=== PATIENT | female | born 1995 | race Caucasian/White ===

== ENCOUNTER 2018-12-21 19:28 | Inpatient (IN) | payer OTHER, MEDICAID ==
[2018-12-21] MEDS: ONDANSETRON 4 MG INJ IV (22:30)
[2018-12-21] MEDS ORDERED: DEXAMETHASONE 10 MG/ML 1 ML INJ IM (22:30)
[2018-12-21] MEDS: morphine 4 MG/ML VIAL IV (22:30)
[2018-12-21] MEDS: SOD CHLORIDE 0.9% 1,000 ML IV (22:31)
[2018-12-21 22:38] LABS: HEMATOCRIT 31.6 % (37.0-47.0); HEMOGLOBIN 9.2 g/dl (12.0-16.0); MEAN CORPUSCULAR HEMOGLOBIN 19.2 pg (29.0-33.0); MEAN CORPUSCULAR HGB CONC 29.1 g/dl (32.0-37.0); MEAN CORPUSCULAR VOLUME 66.1 fl (82.0-101.0); PLATELET COUNT 683 10^3/UL (140-415); RED BLOOD COUNT 4.78 10^6/ul (4.20-5.40); RED CELL DISTRIBUTION WIDTH 17.5 % (11.5-14.5)
[2018-12-21 22:41] LABS: ADD UMIC YES; UR ASCORBIC ACID NEGATIVE (NEGATIVE); UR BACTERIA FEW /HPF (NONE SEEN); UR BILIRUBIN (Dip) NEGATIVE (NEGATIVE); UR BLOOD (Dip) 1+ mg/dL (NEGATIVE); UR CLARITY CLOUDY (CLEAR); UR COLOR YELLOW (YELLOW); UR GLUCOSE (Dip) NEGATIVE (NEGATIVE); UR KETONES (Dip) 1+ mg/dL (NEGATIVE); UR LEUKOCYTE ESTERASE (Dip) 1+ Leu/ul (NEGATIVE); UR MUCUS FEW /HPF (NONE SEEN); UR NITRITE (Dip) NEGATIVE (NEGATIVE); UR RBC 13 /HPF (0-5); UR SPECIFIC GRAVITY (Dip) 1.016 (1.003-1.030); UR SQUAMOUS EPITHELIAL CELL FEW /HPF (FEW); UR TOTAL PROTEIN (Dip) NEGATIVE (NEGATIVE); UR UROBILINOGEN (Dip) NEGATIVE (NEGATIVE); UR WBC 11 /HPF (0-5)
[2018-12-21 22:42] LABS: ADD MAN DIFF? YES
[2018-12-21 22:43] LABS: PATH REVIEW? YES
[2018-12-21] MEDS: DEXAMETHASONE 10 MG/ML 1 ML INJ IV (22:47)
[2018-12-21 22:57] LABS: ALANINE AMINOTRANSFERASE 17 IU/L (13-69); ALBUMIN 3.9 g/dl (3.3-4.9); ALBUMIN/GLOBULIN RATIO 1.05; ALKALINE PHOSPHATASE 85 IU/L (42-121); AMYLASE 63 U/L (11-123); ANION GAP 10 (5-13); ASPARTATE AMINO TRANSFERASE 12 IU/L (15-46); BILIRUBIN,INDIRECT 0.1 mg/dl (0-1.1); BILIRUBIN,TOTAL 0.1 mg/dl (0.2-1.3); BLOOD UREA NITROGEN 4 mg/dl (7-20); CARBON DIOXIDE 25 mmol/L (21-31); CHLORIDE 106 mmol/L (97-110); CREATININE 0.65 mg/dl (0.44-1.00); Estimated GFR > 60 mL/min (>60); GLUCOSE 92 mg/dl (70-220); LIPASE 44 U/L (23-300); SODIUM 141 mmol/L (135-144); TOTAL PROTEIN 7.6 g/dl (6.1-8.1)
[2018-12-21 23:01] LABS: AMPHETAMINE/METHAMPHETAMINE Negative (NEGATIVE); BARBITURATES Negative (NEGATIVE); BENZODIAZEPINES Negative (NEGATIVE); CANNABINOIDS Negative (NEGATIVE); COCAINE Negative (NEGATIVE)
[2018-12-21 23:02] LABS: OPIATES Positive (NEGATIVE)
[2018-12-21 23:28] LABS: ACANTHOCYTES 1+ (0-0); ANISOCYTOSIS 1+ (0-0); BAND NEUTROPHILS #M 2.7 10^3/ul (0.0-0.6); BAND NEUTROPHILS % (M) 11 % (0-4); BASOPHIL #M 0.2 10^3/ul (0.0-0.0); BASOPHILS % (M) 1 % (0-2); BURR CELLS 1+ (0-0); EOSINOPHILS % (M) 5 % (0-7); GIANT THROMBO% (M) 2 % (0-0); LYMPHOCYTES % (M) 24 % (15-51); MICROCYTOSIS 1+ (0-0); MONOCYTE #M 2.5 10^3/ul (0.3-0.9); MONOCYTES % (M) 10 % (0-11); OVALOCYTES 2+ (0-0); PLATELET ESTIMATE INCREASED; POIKILOCYTOSIS 2+ (0-0); SEG NEUT #M 12.9 10^3/ul (1.6-7.5); SEGMENTED NEUTROPHILS (M) % 49 % (39-77); SMUDGE%M 36 % (0-0)
[2018-12-21 23:41] LABS: ERYTHROCYTE SEDIMENTATION RATE 35 mm/Hr (0-20)
[2018-12-22] MEDS: SOD CHLORIDE 0.9% 1,000 ML IV (00:25)
[2018-12-22] MEDS: PIPER-TAZO 3.375 GM IV (PMX) 100 ML IVPB ×3 (01:45→17:34)
[2018-12-22] MEDS: morphine 4 MG/ML VIAL IV ×5 (03:39→20:56)
[2018-12-22] MEDS ORDERED: ACETAMINOPHEN 325 MG TAB PO ×2 (04:30→07:00)
[2018-12-22] MEDS ORDERED: ONDANSETRON 4 MG INJ IV ×2 (04:30→07:00)
[2018-12-22 04:55] LABS: LACTIC ACID 0.8 mmol/L (0.5-2.0)
[2018-12-22] MEDS: DEXTROSE 5%-0.45% NACL 1,000 ML IV ×2 (08:09→16:32)
[2018-12-22] MEDS: FAMOTIDINE 20 MG TAB PO ×2 (08:09→20:15)
[2018-12-22 08:22] LABS: ABNORMAL IP MESSAGE 1; HEMATOCRIT 33.3 % (37.0-47.0); HEMOGLOBIN 9.6 g/dl (12.0-16.0); MEAN CORPUSCULAR HEMOGLOBIN 19.1 pg (29.0-33.0); MEAN CORPUSCULAR HGB CONC 28.8 g/dl (32.0-37.0); MEAN CORPUSCULAR VOLUME 66.2 fl (82.0-101.0); MEAN PLATELET VOLUME 9.7 fl (7.4-10.4); PLATELET COUNT 725 10^3/UL (140-415); RED BLOOD COUNT 5.03 10^6/ul (4.20-5.40); RED CELL DISTRIBUTION WIDTH 17.5 % (11.5-14.5)
[2018-12-22 08:22] LABS: WHITE BLOOD COUNT 27.3 10^3/ul (4.8-10.8)
[2018-12-22 08:32] LABS: ADD MAN DIFF? YES; POSITIVE DIFF @See below
[2018-12-22 08:46] LABS: ANION GAP 11 (5-13); BLOOD UREA NITROGEN 2 mg/dl (7-20); C-REACTIVE PROTEIN 3.8 mg/dl (0.0-0.9); CALCIUM 9.2 mg/dl (8.4-10.2); CARBON DIOXIDE 23 mmol/L (21-31); CHLORIDE 107 mmol/L (97-110); CREATININE 0.53 mg/dl (0.44-1.00); Estimated GFR > 60 mL/min (>60); GLUCOSE 149 mg/dl (70-220); MAGNESIUM 2.1 mg/dl (1.7-2.5); PHOSPHORUS 2.8 mg/dl (2.5-4.9); POTASSIUM 4.3 mmol/L (3.5-5.1); SODIUM 141 mmol/L (135-144)
[2018-12-22 09:23] LABS: ANISOCYTOSIS 3+ (0-0); BAND NEUTROPHILS #M 7.6 10^3/ul (0.0-0.6); BAND NEUTROPHILS % (M) 28 % (0-4); GIANT THROMBO% (M) 1 % (0-0); HYPOCHROMASIA 2+ (0-0); LYMPHOCYTES #M 2.1 10^3/ul (0.8-2.9); LYMPHOCYTES % (M) 8 % (15-51); MICROCYTOSIS 3+ (0-0); PLATELET ESTIMATE INCREASED; POIKILOCYTOSIS 3+ (0-0); POLYCHROMASIA 3+ (0-0); SEG NEUT #M 19.5 10^3/ul (1.6-7.5); SEGMENTED NEUTROPHILS (M) % 64 % (39-77)
[2018-12-22 09:55] LABS: ERYTHROCYTE SEDIMENTATION RATE 36 mm/Hr (0-20)
[2018-12-22] MEDS: MESALAMINE (EC) 400 MG CAP PO (20:15)
[2018-12-22 20:51] LABS: OCCULT BLOOD STOOL POSITIVE (NEGATIVE)
[2018-12-23] MEDS: PIPER-TAZO 3.375 GM IV (PMX) 100 ML IVPB ×5 (00:09→23:40)
[2018-12-23] MEDS: morphine 4 MG/ML VIAL IV ×5 (01:04→22:01)
[2018-12-23] MEDS: DEXTROSE 5%-0.45% NACL 1,000 ML IV ×2 (05:35→07:00)
[2018-12-23 06:28] LABS: ADD MAN DIFF? NO
[2018-12-23 06:41] LABS: WHITE BLOOD COUNT 26.3 10^3/ul (4.8-10.8)
[2018-12-23 06:41] LABS: ABNORMAL IP MESSAGE 1; BASOPHIL # 0.1 10^3/ul (0.0-0.1); BASOPHILS % 0.4 % (0.0-2.0); EOSINOPHILS # 0.1 10^3/ul (0.0-0.5); EOSINOPHILS % 0.2 % (0.0-7.0); HEMATOCRIT 27.6 % (37.0-47.0); HEMOGLOBIN 8.1 g/dl (12.0-16.0); LYMPHOCYTES # 3.3 10^3/ul (0.8-2.9); LYMPHOCYTES % 12.6 % (15.0-51.0); MEAN CORPUSCULAR HEMOGLOBIN 19.3 pg (29.0-33.0); MEAN CORPUSCULAR HGB CONC 29.3 g/dl (32.0-37.0); MEAN CORPUSCULAR VOLUME 65.9 fl (82.0-101.0); MEAN PLATELET VOLUME 10.2 fl (7.4-10.4); MONOCYTE # 1.7 10^3/ul (0.3-0.9); MONOCYTES % 6.3 % (0.0-11.0); NEUTROPHIL # 20.9 10^3/ul (1.6-7.5); NEUTROPHILS % 79.7 % (39.0-77.0); NUCLEATED RED BLOOD CELLS% 0.1 /100WBC (0.0-0.0); RED BLOOD COUNT 4.19 10^6/ul (4.20-5.40); RED CELL DISTRIBUTION WIDTH 17.7 % (11.5-14.5)
[2018-12-23 06:49] LABS: PLATELET COUNT 642 10^3/UL (140-415); POSITIVE DIFF @See below
[2018-12-23 07:06] LABS: ALANINE AMINOTRANSFERASE 15 IU/L (13-69); ALBUMIN 3.2 g/dl (3.3-4.9); ALBUMIN/GLOBULIN RATIO 0.96; ALKALINE PHOSPHATASE 68 IU/L (42-121); ANION GAP 11 (5-13); ASPARTATE AMINO TRANSFERASE 9 IU/L (15-46); BLOOD UREA NITROGEN 3 mg/dl (7-20); CALCIUM 8.6 mg/dl (8.4-10.2); CARBON DIOXIDE 26 mmol/L (21-31); CHLORIDE 105 mmol/L (97-110); CREATININE 0.64 mg/dl (0.44-1.00); Estimated GFR > 60 mL/min (>60); GLUCOSE 104 mg/dl (70-220); POTASSIUM 3.5 mmol/L (3.5-5.1); SODIUM 142 mmol/L (135-144); TOTAL PROTEIN 6.5 g/dl (6.1-8.1)
[2018-12-23 07:33] LABS: PHOSPHORUS 3.3 mg/dl (2.5-4.9)
[2018-12-23 07:33] LABS: MAGNESIUM 1.8 mg/dl (1.7-2.5)
[2018-12-23] MEDS: FAMOTIDINE 20 MG TAB PO ×2 (09:42→20:36)
[2018-12-23] MEDS: MESALAMINE (EC) 400 MG CAP PO ×3 (09:43→20:36)
[2018-12-23] MEDS: POTASSIUM CHLORIDE (SR) 20 MEQ TAB PO (12:10)
[2018-12-23] MEDS: D5W-0.45 NACL + KCL 20 MEQ 1,000 ML IV ×3 (12:10→23:00)
[2018-12-23] MEDS: morphine 2 MG INJ IV (13:48)
[2018-12-24] MEDS: morphine 4 MG/ML VIAL IV ×5 (02:08→21:46)
[2018-12-24] MEDS: PIPER-TAZO 3.375 GM IV (PMX) 100 ML IVPB ×3 (05:31→18:30)
[2018-12-24 06:04] LABS: ABNORMAL IP MESSAGE 1; HEMATOCRIT 28.2 % (37.0-47.0); HEMOGLOBIN 8.4 g/dl (12.0-16.0); MEAN CORPUSCULAR HEMOGLOBIN 19.6 pg (29.0-33.0); MEAN CORPUSCULAR HGB CONC 29.8 g/dl (32.0-37.0); MEAN CORPUSCULAR VOLUME 65.7 fl (82.0-101.0); MEAN PLATELET VOLUME 9.7 fl (7.4-10.4); NUCLEATED RED BLOOD CELLS% 0.1 /100WBC (0.0-0.0); PLATELET COUNT 615 10^3/UL (140-415); RED BLOOD COUNT 4.29 10^6/ul (4.20-5.40); RED CELL DISTRIBUTION WIDTH 17.8 % (11.5-14.5)
[2018-12-24 06:04] LABS: WHITE BLOOD COUNT 25.3 10^3/ul (4.8-10.8)
[2018-12-24 06:09] LABS: ADD MAN DIFF? YES; POSITIVE DIFF @See below
[2018-12-24 06:32] LABS: MAGNESIUM 1.8 mg/dl (1.7-2.5)
[2018-12-24 06:32] LABS: PHOSPHORUS 3.2 mg/dl (2.5-4.9)
[2018-12-24 06:34] LABS: ALANINE AMINOTRANSFERASE 9 IU/L (13-69); ALBUMIN 3.2 g/dl (3.3-4.9); ALBUMIN/GLOBULIN RATIO 0.96; ALKALINE PHOSPHATASE 62 IU/L (42-121); ANION GAP 13 (5-13); ASPARTATE AMINO TRANSFERASE 12 IU/L (15-46); BILIRUBIN,INDIRECT 0.1 mg/dl (0-1.1); BILIRUBIN,TOTAL 0.1 mg/dl (0.2-1.3); BLOOD UREA NITROGEN 4 mg/dl (7-20); CALCIUM 8.4 mg/dl (8.4-10.2); CARBON DIOXIDE 25 mmol/L (21-31); CHLORIDE 100 mmol/L (97-110); CREATININE 0.73 mg/dl (0.44-1.00); Estimated GFR > 60 mL/min (>60); GLUCOSE 86 mg/dl (70-220); POTASSIUM 3.8 mmol/L (3.5-5.1); SODIUM 138 mmol/L (135-144); TOTAL PROTEIN 6.5 g/dl (6.1-8.1)
[2018-12-24 08:22] LABS: ANISOCYTOSIS 3+ (0-0); BAND NEUTROPHILS #M 2.2 10^3/ul (0.0-0.6); BAND NEUTROPHILS % (M) 9 % (0-4); ELLIPTO 1+ (0-0); EOSINOPHILS % (M) 5 % (0-7); GIANT THROMBO% (M) 1 % (0-0); HYPOCHROMASIA 1+ (0-0); LYMPHOCYTES #M 4.3 10^3/ul (0.8-2.9); LYMPHOCYTES % (M) 17 % (15-51); MICROCYTOSIS 3+ (0-0); MONOCYTE #M 0.7 10^3/ul (0.3-0.9); MONOCYTES % (M) 3 % (0-11); OVALOCYTES 1+ (0-0); PLATELET ESTIMATE INCREASED; POIKILOCYTOSIS 3+ (0-0); POLYCHROMASIA 3+ (0-0); SEG NEUT #M 17.3 10^3/ul (1.6-7.5); SEGMENTED NEUTROPHILS (M) % 66 % (39-77); SMUDGE%M 2 % (0-0); TARGET CELLS 2+ (0-0)
[2018-12-24] MEDS: FAMOTIDINE 20 MG TAB PO ×2 (08:49→22:10)
[2018-12-24] MEDS: MESALAMINE (EC) 400 MG CAP PO ×3 (08:49→22:10)
[2018-12-24] MEDS: D5W-0.45 NACL + KCL 20 MEQ 1,000 ML IV ×2 (08:56→18:30)
[2018-12-24] MEDS: METHYLPREDNISOLONE 125 MG INJ IV ×2 (13:59→22:10)
[2018-12-24] MEDS: IBUPROFEN 600 MG TAB PO (14:49)
[2018-12-25] MEDS: PIPER-TAZO 3.375 GM IV (PMX) 100 ML IVPB ×3 (00:18→11:02)
[2018-12-25] MEDS: ZOLPIDEM 5 MG TAB PO (01:03)
[2018-12-25] MEDS: morphine 4 MG/ML VIAL IV ×3 (01:57→13:18)
[2018-12-25] MEDS: D5W-0.45 NACL + KCL 20 MEQ 1,000 ML IV ×2 (03:00→11:02)
[2018-12-25 05:44] LABS: ADD MAN DIFF? NO
[2018-12-25 05:48] LABS: ABNORMAL IP MESSAGE 1; BASOPHIL # 0.1 10^3/ul (0.0-0.1); BASOPHILS % 0.2 % (0.0-2.0); HEMATOCRIT 31.1 % (37.0-47.0); HEMOGLOBIN 9.3 g/dl (12.0-16.0); LYMPHOCYTES # 1.8 10^3/ul (0.8-2.9); MEAN CORPUSCULAR HEMOGLOBIN 19.5 pg (29.0-33.0); MEAN CORPUSCULAR HGB CONC 29.9 g/dl (32.0-37.0); MEAN CORPUSCULAR VOLUME 65.2 fl (82.0-101.0); MEAN PLATELET VOLUME 9.9 fl (7.4-10.4); MONOCYTE # 0.4 10^3/ul (0.3-0.9); MONOCYTES % 1.6 % (0.0-11.0); NEUTROPHIL # 22.9 10^3/ul (1.6-7.5); NEUTROPHILS % 90.2 % (39.0-77.0); PLATELET COUNT 722 10^3/UL (140-415); RED BLOOD COUNT 4.77 10^6/ul (4.20-5.40); RED CELL DISTRIBUTION WIDTH 17.5 % (11.5-14.5)
[2018-12-25 05:48] LABS: WHITE BLOOD COUNT 25.4 10^3/ul (4.8-10.8)
[2018-12-25 06:12] LABS: POSITIVE DIFF @See below
[2018-12-25] MEDS: METHYLPREDNISOLONE 125 MG INJ IV ×2 (06:49→13:39)
[2018-12-25] MEDS: MESALAMINE (EC) 400 MG CAP PO ×2 (08:06→13:39)
[2018-12-25] MEDS: FAMOTIDINE 20 MG TAB PO (08:06)
== END 2018-12-25 14:57 | disposition home or self-care (01) | DRG 386 ==
LOC: FTE 19:28 → PP2 23:49
PROVIDERS: Internal Medicine
DX: K50.911 Crohn's disease, unspecified, with rectal bleeding (principal); D62 Acute posthemorrhagic anemia; N39.0 Urinary tract infection, site not specified; D50.0 Iron deficiency anemia secondary to blood loss (chronic); Z90.49 Acquired absence of other specified parts of digestive tract; E66.9 Obesity, unspecified; Z68.37 Body mass index [BMI] 37.0-37.9, adult; D47.3 Essential (hemorrhagic) thrombocythemia; D72.829 Elevated white blood cell count, unspecified
CPT/HCPCS: 36415; 74018; 80048; 80053; 80307; 81001; 82150; 82270; 83605; 83690; 83735; 84100; 84703; 85025; 85651; 86140; 86674; 87040; 87045; 87075; 87086; 96361; 96365; 96375; 96376; 99285-25

== ENCOUNTER 2019-02-21 15:26 | Emergency (ER) | payer OTHER ==
[2019-02-21] MEDS: morphine 2 MG INJ IV ×2 (17:26→20:03)
[2019-02-21] MEDS: SOD CHLORIDE 0.9% 1,000 ML IV (17:26)
[2019-02-21 17:35] LABS: WHITE BLOOD COUNT 19.4 10^3/ul (4.8-10.8)
[2019-02-21 17:35] LABS: HEMATOCRIT 32.6 % (37.0-47.0); HEMOGLOBIN 9.6 g/dl (12.0-16.0); MEAN CORPUSCULAR HEMOGLOBIN 19.1 pg (29.0-33.0); MEAN CORPUSCULAR HGB CONC 29.4 g/dl (32.0-37.0); MEAN CORPUSCULAR VOLUME 64.9 fl (82.0-101.0); MEAN PLATELET VOLUME 9.8 fl (7.4-10.4); PLATELET COUNT 732 10^3/UL (140-415); RED BLOOD COUNT 5.02 10^6/ul (4.20-5.40); RED CELL DISTRIBUTION WIDTH 17.6 % (11.5-14.5)
[2019-02-21 17:37] LABS: ADD MAN DIFF? YES
[2019-02-21 17:39] LABS: ADD UMIC YES; UR ASCORBIC ACID NEGATIVE (NEGATIVE); UR BACTERIA FEW /HPF (NONE SEEN); UR BILIRUBIN (Dip) NEGATIVE (NEGATIVE); UR BLOOD (Dip) 1+ mg/dL (NEGATIVE); UR CLARITY CLEAR (CLEAR); UR COLOR STRAW (YELLOW); UR GLUCOSE (Dip) NEGATIVE (NEGATIVE); UR KETONES (Dip) NEGATIVE (NEGATIVE); UR LEUKOCYTE ESTERASE (Dip) TRACE Leu/ul (NEGATIVE); UR NITRITE (Dip) NEGATIVE (NEGATIVE); UR RBC 0 /HPF (0-5); UR SPECIFIC GRAVITY (Dip) 1.009 (1.003-1.030); UR SQUAMOUS EPITHELIAL CELL FEW /HPF (FEW); UR TOTAL PROTEIN (Dip) NEGATIVE (NEGATIVE); UR UROBILINOGEN (Dip) NEGATIVE (NEGATIVE); UR WBC 1 /HPF (0-5)
[2019-02-21 18:05] LABS: C-REACTIVE PROTEIN 0.9 mg/dl (0.0-0.9)
[2019-02-21 18:15] LABS: ANISOCYTOSIS 2+ (0-0); BAND NEUTROPHILS #M 0.3 10^3/ul (0.0-0.6); BAND NEUTROPHILS % (M) 2 % (0-4); BASOPHIL #M 0.1 10^3/ul (0.0-0.0); BASOPHILS % (M) 1 % (0-2); EOSINOPHILS % (M) 8 % (0-7); GIANT THROMBO% (M) 2 % (0-0); HYPOCHROMASIA 2+ (0-0); LYMPHOCYTES #M 4.2 10^3/ul (0.8-2.9); LYMPHOCYTES % (M) 22 % (15-51); MICROCYTOSIS 2+ (0-0); MONOCYTE #M 0.9 10^3/ul (0.3-0.9); MONOCYTES % (M) 5 % (0-11); OVALOCYTES 2+ (0-0); PLATELET ESTIMATE INCREASED; POIKILOCYTOSIS 2+ (0-0); SEG NEUT #M 12.1 10^3/ul (1.6-7.5); SEGMENTED NEUTROPHILS (M) % 62 % (39-77); SMUDGE%M 7 % (0-0)
[2019-02-21] MEDS ORDERED: DEXAMETHASONE 10 MG/ML 1 ML INJ IM (18:30)
[2019-02-21 18:41] LABS: ERYTHROCYTE SEDIMENTATION RATE 18 mm/Hr (0-20)
[2019-02-21 18:46] LABS: ALANINE AMINOTRANSFERASE 7 IU/L (13-69); ALBUMIN 4.3 g/dl (3.3-4.9); ALBUMIN/GLOBULIN RATIO 1.04; ALKALINE PHOSPHATASE 93 IU/L (42-121); ANION GAP 10 (5-13); ASPARTATE AMINO TRANSFERASE 18 IU/L (15-46); BILIRUBIN,INDIRECT 0.4 mg/dl (0-1.1); BILIRUBIN,TOTAL 0.4 mg/dl (0.2-1.3); BLOOD UREA NITROGEN 7 mg/dl (7-20); CALCIUM 9.9 mg/dl (8.4-10.2); CARBON DIOXIDE 22 mmol/L (21-31); CHLORIDE 107 mmol/L (97-110); CREATININE 0.62 mg/dl (0.44-1.00); Estimated GFR > 60 mL/min (>60); GLUCOSE 81 mg/dl (70-220); LIPASE 72 U/L (23-300); POTASSIUM 4.2 mmol/L (3.5-5.1); SODIUM 139 mmol/L (135-144); TOTAL PROTEIN 8.4 g/dl (6.1-8.1)
[2019-02-21] MEDS: DEXAMETHASONE 10 MG/ML 1 ML INJ IV (18:59)
[2019-02-21] MEDS: IBUPROFEN 600 MG TAB PO (19:22)
== END 2019-02-21 21:30 | disposition home or self-care (01) ==
LOC: FTE 15:26
DX: K50.90 Crohn's disease, unspecified, without complications (principal)
CPT/HCPCS: 36415; 74019; 80053; 81001; 81025; 83690; 85025; 85651; 86140; 86850; 86900; 86901; 96361; 96374; 96375; 96376; 99284-25